=== PATIENT | female | born 1965 | race Caucasian/White ===

== ENCOUNTER 2016-12-12 23:40 | Emergency (ER) | payer BC ==
--- NOTE | ~2016-12-12 | EKG ---
PATIENT: JALEN LYNN UNIT #: [id number] Ventricular Rate: 86 BPM Atrial Rate: 86 BPM P-R Interval: 144 ms QRS Duration: 84 ms Q-T Interval: 364 ms QTC Calculation(Bezet): 435 ms P Wynot: 30 degrees Calculated R Wynot: 0 degrees Calculated T Wynot: 169 degrees Diagnosis Line: Normal sinus rhythm Diagnosis Line: Poor R wave progression questionable lead position Diagnosis Line: or body habitus T wave abnormality, consider Diagnosis Line: inferolateral ischemia Diagnosis Line: Abnormal ECG Diagnosis Line: No previous ECGs available Diagnosis Line: Confirmed by SUMMER PETERSON MD ([id number]) on 12/14/2016 Diagnosis Line: 9:17:52 AM INTERPRETING MD: KRISTEN GUNTER
--- NOTE | ~2016-12-12 | CR72 ---
[facility] A Service of [facility] RADIOLOGY TEXT RESULTS PATIENT: SHANE,RAY LOCATION: [facility]EN : 65 UNIT #: [id number] AGE: [address]: Roger Godinez MD SEX: F ORDER DR: [id number] [facility] [address] [place], [place] [address] [id number] MR#: [id number] Acc #: [id number] NAME: JALEN LYNN : 1965 SEX: F STUDY DATE/TIME: 12/12/2016 23:59 UNIT: ELEN ROOM: STUDY DESCRIPTION: CR Chest Single View Portable Attending Physician: Roger Godinez M.D. Ordering Physician: Roger Godinez M.D. Primary Care Physician: No Primary Care Physician MEDICAL IMAGING REPORT This report is preliminary unless electronic signature is present EXAM AP portable chest 12/12/2016 HISTORY 51-year-old female in the ED complaining of shortness of air beginning earlier this afternoon. TECHNIQUE AP portable chest x-ray. FINDINGS Dialysis catheter is in place. Mild diffuse interstitial pulmonary edema, small bilateral pleural effusions, and bibasilar pulmonary atelectasis have increased since chest x-ray obtained yesterday at [facility]. Shallow lung expansion. Probable TIPS shunt in the right upper quadrant of the abdomen. IMPRESSION 1. New or worsening diffuse interstitial pulmonary edema since yesterday. Evaluate for volume overload or vascular congestion. 2. Small bilateral pleural effusions and bibasilar atelectasis without significant change. Stable cardiomegaly. 3. Dialysis catheter in place. Dictated by... Zeferino Haynes M.D. THIS IS AN ELECTRONICALLY VERIFIED REPORT Zeferino Haynes M.D. at 12/13/2016 10:06 PM OLGA/aram TD: 12/13/2016 15:57 [facility] A Service of [facility] RADIOLOGY TEXT RESULTS PATIENT: SHANERAY LOCATION: ELEN : 65 UNIT #: [id number] AGE: [address]: Roger Godinez MD SEX: F ORDER DR: JOB #: [id number] MEDICAL IMAGING REPORT Page 1 of 1 COPY
[2016-12-13 00:09] LABS: POC - CKMB 3.1 ng/mL (0.0-7.9); POC - TROPONIN <0.05 ng/mL (<=0.05)
[2016-12-13 00:46] LABS: BASOPHIL# 0.1 X10e3 (0-0.3); EOSINOPHIL# 0.1 X10e3 (0-0.7); HEMATOCRIT 27.5 % (35.0-45.0); HEMOGLOBIN 8.7 gm/dL (12.0-16.0); LYMPHOCYTE# 0.7 X10e3 (1.0-3.5); LYMPHOCYTE% 8.5 % (17.0-45.0); MEAN CELL VOLUME 93.7 FL (83-96); MEAN CORPUSCULAR HEMOGLOBIN 29.6 PG (28-34); MEAN CORPUSCULAR HGB CONC 31.6 g/dL (30-36); MEAN PLATELET VOLUME 8.5 FL (6.5-11.5); MONOCYTE# 0.9 X10e3 (0-1.0); MONOCYTE% 10.7 % (3.0-12.0); NEUTROPHIL# 6.3 X10e3 (1.5-7.1); NEUTROPHIL% 78.8 % (40-75); PLATELET COUNT 244 X10e3 (140-420); RED BLOOD COUNT 2.93 X10e (3.90-5.30); RED CELL DISTRIBUTION WIDTH 17.7 % (11.0-15.5)
[2016-12-13 00:50] LABS: DIFF IND NO
[2016-12-13 01:00] LABS: INR 1.1; PARTIAL THROMBOPLASTIN TIME 23.9 SECONDS (23.5-31.3); PROTHROMBIN TIME (PATIENT) 11.6 SECONDS (9.6-11.5)
[2016-12-13 01:20] LABS: ALBUMIN SERUM 1.9 g/dL (3.5-5.0); BILIRUBIN, DIRECT 0.4 mg/dL (0.0-0.2); BILIRUBIN,INDIRECT 0.7 mg/dL (0.0-0.9); BILIRUBIN,TOTAL 1.1 mg/dL (0.2-2.0); BUN/CREATININE RATIO 6.17; CREATININE SERUM 3.4 mg/dL (0.6-1.4); GLOM FILT RATE Estimated 15.1 mL/min (>60); PROTEIN TOTAL SERUM 5.9 g/dL (6.0-8.3)
[2016-12-13 01:56] LABS: POC - CKMB 2.2 ng/mL (0.0-7.9); POC - TROPONIN <0.05 ng/mL (<=0.05)
[2016-12-13 04:30] LABS: BUN/CREATININE RATIO 5.94; CALCIUM SERUM 7.9 mg/dL (8.4-10.2); CREATININE SERUM 3.7 mg/dL (0.6-1.4); GLOM FILT RATE Estimated 13.7 mL/min (>60); POTASSIUM 3.2 mmol/L (3.5-5.1)
== END 2016-12-13 04:58 | disposition home or self-care (01) ==
LOC: CED 23:40
PROVIDERS: Emergency Medicine
DX: M25.511 Pain in right shoulder (principal); E11.65 Type 2 diabetes mellitus with hyperglycemia; E87.5 Hyperkalemia; R01.1 Cardiac murmur, unspecified; I12.9 Hypertensive chronic kidney disease with stage 1 through stage 4 chronic kidney disease, or unspecified chronic kidney disease; N18.9 Chronic kidney disease, unspecified; M25.512 Pain in left shoulder; Z90.49 Acquired absence of other specified parts of digestive tract
CPT/HCPCS: 36415; 71010; 80048; 80076; 82553; 82947; 84484; 85025; 85610; 85730; 93005; 96374; 96375; 99284; J2270; J2405